=== PATIENT | female | born 1980 | race Caucasian/White ===

== ENCOUNTER → 2021-03-12 07:49 | Outpatient (CLI) | payer BC, SELFPAY ==
--- NOTE | ~2021-03-12 | MMUS_ITS ---
EXAMINATION: MM diagnostic josefina BI w allen, US breast BI complete HISTORY: Palpable breast mass TECHNIQUE: Additional 3-D tomosynthesis images of the breasts were performed and synthetic 2-D images were generated. CAD analysis was submitted and interpreted. High resolution bilateral complete breas t ultrasound was performed. COMPARISON: Comparison to multiple prior studies sequentially, with oldest reviewed study dated 03/17. BREAST PARENCHYMAL COMPOSITION: The breasts are extremely dense, which lowers the sensitivity of mamm ography. FINDINGS: MAMMOGRAPHIC FINDINGS: There are no new suspicious masses, calcifications or architectural distortion in either breast to hill ggest malignancy. There are a few benign-appearing bilateral breast calcifications some of which appe ar to layer on the medial lateral view, consistent with fibrocystic disease. No discrete mass in the area of palpable concern in the left breast. ULTRASOUND: Complete right breast ultrasound: There are multiple simple and complicated cyst of the right breast on the largest at 9:00, 9 cm from the nipple measuring 1.4 cm. There is an oval circumscribed hypoech oic mass measuring 6 mm at 10:00, 9 cm from the nipple without posterior features. Complete left breast ultrasound: At 1-2 o'clock, 9 cm from the nipple, there is a 7 mm intramammary l ymph node. No other discrete mass in the left breast to suggest malignancy. IMPRESSION: 1. Probable benign 6 mm mass of the right breast at 10:00, 9 cm from the nipple. 2. Recommend 6 month follow-up right breast ultrasound BI-RADS category 3, probably benign findings. Reviewed, dictated and finalized at location A. IMPRESSION: 1. Probable benign 6 mm mass of the right breast at 10:00, 9 cm from the nipple . 2. Recommend 6 month follow-up right breast ultrasound BI-RADS category 3, probably benign findings.
== END ==
PROVIDERS: Visit Provider Nurse Practitioner
DX: R92.8 Other abnormal and inconclusive findings on diagnostic imaging of breast (principal)
CPT/HCPCS: 76641; 77062; 77066; G0279

== ENCOUNTER → 2023-04-07 07:38 | Outpatient (CLI) | payer BC, SELFPAY ==
--- NOTE | ~2023-04-07 | MMUS_ITS ---
EXAMINATION: MM diagnostic josefina BI w allen, US breast BI limited HISTORY: Overdue follow-up for probably benign right breast mass and bilateral palpable lumps in the upper outer quadrants of the breasts. TECHNIQUE: Craniocaudal, mediolateral, and mediolateral oblique 3-D tomosynthesis images of the breas ts were performed and synthetic 2-D images were generated. CAD analysis was submitted and interpreted . High resolution limited bilateral breast ultrasound was performed. COMPARISON: 03/12/2021, 03/17/2017 BREAST PARENCHYMAL COMPOSITION: The breasts are heterogeneously dense, which may obscure small masses . FINDINGS: MAMMOGRAPHIC FINDINGS: There are stable punctate, round calcifications in the posterior third of the outer right breast. No suspicious mass or architectural distortion are identified in either breast. There has been no suspic ious interval change. ULTRASOUND: The previously described 6 mm oval, circumscribed, parallel, hypoechoic mass with no posterior featur es or internal vascularity at the 10:00 location, 9 cm from the nipple is stable. This is considered benign given greater than two years of interval stability. Multiple additional cysts are noted in the right breast. There is an intramammary lymph node at the 1:30 location 9 cm from the nipple in the l eft breast. A left breast cyst is noted at the 1:30 location 4 cm from the nipple. IMPRESSION: 1. No mammographic or sonographic evidence of malignancy. 2. Recommend routine screening mammography in one year. BI-RADS Category 2: Benign finding(s). Reviewed, dictated and finalized at location A. IMPRESSION: 1. No mammographic or sonographic evidence of malignancy. 2. Recommend routine screening mammography in one year. BI-RADS Category 2: Benign finding(s).
== END ==
PROVIDERS: PCP Nurse Practitioner; Visit Provider Nurse Practitioner
DX: R92.8 Other abnormal and inconclusive findings on diagnostic imaging of breast (principal)
CPT/HCPCS: 76642; 77062; 77066; G0279